=== PATIENT | male | born 1960 | race African-American/Black ===

== ENCOUNTER 2017-12-29 16:57 | Inpatient (IN) | payer BC ==
[~2017-12-29 16:57] MED LIST: ISOVUE-370 76%-LOCM 1 ML ONE
--- NOTE | 2017-12-29 18:52 | PDOC.FPRHP ---
- History of Present Illness Chief Complaint: Right hand weakness History of Present Illness: This is a 57 yo male with a PMH of HTN, HLD who presents to the ED with a cc of right hand weakness. He reports that 3 days ago he started having some foot drop on his right side with reduced ability to walk. Today he reports that he had weakness and numbness in his right arm. He states that his numbness and weakness has improved throughout the day. He reports he is still having some weakness in his right lower leg. Pt. denies SOB, CP, changes in vision, dysphagia, or abdominal pain. He denies never having anything like this before. - Allergies/Adverse Reactions Allergies Allergy/AdvReac Type Severity Reaction Status Date / Time No Known Drug Allergies Allergy Unverified 12/29/17 20:33 - Home Medications Medication Instructions Recorded Confirmed Type Aspirin 325 mg PO DAILY 12/29/17 12/29/17 History Atorvastatin Calcium [Lipitor] 10 mg PO DAILY 12/29/17 12/29/17 History Lisinopril 20 mg PO DAILY 12/29/17 12/29/17 History - History PMHx:HTN, HLD PSHx: None FHx: Mother at 50 2/2 heart attack, father has DMII Social: Daily alcohol use, smokeless tobacco, denies drug use - Review of Systems General: denies: fever/chills, weight/appetite/sleep changes Eyes: denies: eye pain, vision changes ENT: denies: nasal congestion, rhinorrhea Respiratory: denies: cough, congestion, shortness of breath Cardiovascular: denies: chest pain, palpitation, edema Gastrointestinal: denies: nausea, vomiting, diarrhea, constipation, abdominal pain Genitourinary: denies: incontinence, dysuria Skin: denies: rashes, lesions Musculoskeletal: denies: pain, tenderness Neurological: reports: numbness, weakness Psychological: denies: anxiety, depression - Vital signs BP: 194/114 HR: 60 RR: 22 Tmax: 98.9 Pox: 100% on RA Wt: 66.7 - Physical Exam Constitutional: NAD, awake, alert and oriented, well developed HEENT: PERRLA, EOMI, MMM Neck: supple, FROM, trachea midline Chest: no-tender to palpation, no lesions Heart: RRR, normal S1/S2, no murmurs/rubs/gallops, pulses present, no edema Lungs: CTAB, no respiratory distress, good air movement Abdomen: soft, non-tender, bowel sounds present, no masses/distention Musculoskeletal: normal structure, normal tone, other (Right UE had slight decrease in strength, right LE had) Neurological: CN II-XII intact, normal sensation -Neurological: Slight decrease in strength in right UE however still remains quite strong. No noticeable decreased in strength on the lower leg. Skin: good turgor, capillary refill <2 seconds Heme/Lymphatic: no unusual bruising or bleeding, no purpura Psychiatric: normal mood and affect, good judgment and insight FMR H&P: Results - Labs Lab results: WBC 4.6, Hgb 13.0, Hct 41.6, Ptl 269, Na 140, K 3.6, Cl 108, Bicarb 23, BUN 16, Cr 0.87, Glucos 140, Trop neg x1, - Radiology Interpretation CT scan - head Status: report reviewed by me (Lacunar infaction right thalamus of indeterminate age, no acute cortical infaction is seen, no evidence of hemorrhage) Chest x-ray Status: report reviewed by me (No acute cardiopulmonary process) FMR H&P: A/P - Problem List (1) TIA (transient ischemic attack) Current Visit: Yes Status: Acute Code(s): G45.9 - TRANSIENT CEREBRAL ISCHEMIC ATTACK, UNSPECIFIED (2) HTN (hypertension) Current Visit: Yes Status: Acute Code(s): I10 - ESSENTIAL (PRIMARY) HYPERTENSION (3) HLD (hyperlipidemia) Current Visit: Yes Status: Acute Code(s): E78.5 - HYPERLIPIDEMIA, UNSPECIFIED - Plan This is a 57 yo male with a PMH of HTN, HLD TIA vs CVA r/o -Admit to stroke. CT head shows lacunar infarct of unknown age. We are ordering CTA head and neck, echo, and an MRI. Pt. has received aspirin 325 and will be started on atorvastatin 40 qHS. PT/OT has been consulted. We will consult Stroke team pending MRI results HTN -Continue home medication HLD -atorvastatin 40mg Alcoholism -ASE protocol Code: Full Prophylaxis: SCDs Family: Friends at bedside Disposition: Home in 2-3 days FMR H&P: Upper Level - Pertinent history 57 yo AAM PMH HTN, EtOH abuse, and tobacco abuse. Presents as transfer from [facility] with a CC of right foot drop that started 3 days ago. States this has not resolved. Patient also reports right arm weakness and numbness that started at approximately 0900 today. State it has since resolved. Reports daily alcohol and tobacco use. Has approximately 35 pack year smoking hx. States he drinks at least 2-3 beers daily and up to a 12 pack on the the weekend. Review of records shows carotid doppler in 2011 with 40-50% stenosis of left internal carotid. ER: Labs, EKG, CT brain, ASA. - Pertinent findings Vitals: BP elevated 190/100, otherwise WNL GEN: NAD EENT: MMM, PERRL, EOMI CV: RRR, no murmur Pulm: CTA-B normal effort Neuro: CN 2-12 intact, normal sensation 4/5 strength in right hand, otherwise 5/ 5 in all major muscle groups, negative [id number] and heel to mireles. A&Ox4, GCS 15 EKG: NSR with voltage criteria for LVH Labs: unremarkable Imaging: CXR negative, CT brain- right thalamic infarct of unknown age. - Plan Date/Time: 12/29/171850 I, Lyle Lee MD, have evaluated this patient and agree with findings/plan as outlined by property management intern resident. Pertinent changes/additions are listed here. 1. Suspected Acute Right Lacunar Infarct of the thalamus: Will order CTA head and neck to evaluate vasculature. MRI brain tomorrow. PT/OT, continue ASA with consideration of switching to other antiplatelet therapy based on MRI results, High intensity statin, permissive HTN, Will consult remainder of stroke team pending results of MRI, TTE ordered, encourage smoking cessation and alcohol cessation, q4hr neurochecks, FLP to further risk stratify 2. HTN: home meds, permissive HTN to 220/110 for 24 hours 3. Tobacco abuse: encouraged cessation, PRN nicotine patch, 4. Alcohol abuse: FRANCISCO protocol 5. Diet: HH, low sodium 6. PPx: fall, SCD, 7. CODE: FULL DISPO: Inpatient, stroke, >[address] Collins. Attending Addendum - Attending Addendum Date/Time: 12/29/17 7549 I personally evaluated the patient and discussed the management with Dr. Velásquez /Jesus. I agree with the History, Examination, Assessment and Plan documented above with any addition or exceptions noted below. Patient here after 3-4 days of R foot drop that has impacted his mobility that began suddenly, waxes and wanes, and new onset R hand numbness and weakness that occurred this morning. He reports the hand symptoms resolved through the day but R foot drop continues to be persistent. He denies CABALLERO, visual changes, difficulty swallowing, abdominal pain, NVD, cough, shortness of breath, chest pain, weakness or sensory change elsewhere. He has never had symptoms like this before. On statin, ASA, and BP control at home. His exam reveals very minor assymetry in R hand strength and R foot dorsiflexion. Other neurological testing wnl at this time. CT scan shows age indeterminate lacunar infarct, and CTA shows carotid stenosis, but no acute embolic or thrombotic phenomena. Patient will be admitted for presumed subacute infarct resulting in neurological deficit impacting mobility. Will consult Neurology and Stroke team in AM as his deficits are outside window for more aggressive therapeutics. Permissive HTN overnight and then work to control beginning tomorrow. Obtain MRI and TTE. High intensity statin. Likely transition patient to ASA and Plavix once MRI obtained and we can verify no hemorrhagic conversion. Risk stratify and modify risk factors as able. Consult therapy services.
[2017-12-29] MEDS ORDERED: Labetalol HCl 100 MG/20 ML VIAL SLOW IVP PRN (20:29)
[2017-12-29] MEDS ORDERED: Acetaminophen 325 MG TAB PO PRN (20:29)
[2017-12-29] MEDS ORDERED: Ondansetron ODT 4 MG TAB PO PRN (20:29)
--- NOTE | 2017-12-29 20:54 | CT ---
CT BRAIN WITHOUT CONTRAST: CTA BRAIN WITH IV CONTRAST AND 3D POST PROCESSING: CTA NECK WITH IV CONTRAST AND 3D POST PROCESSING: HISTORY: A 57-year-old male with possible stroke. Difficulty walking with right leg dragging for the past thr ee days and numbness in the right arm at around 9 a.m. today. The patient reports numbness has resol leah. FINDINGS: No evidence of transcortical infarct, hemorrhage, midline shift, or abnormal extraaxial fluid collect ions is seen. The ventricular size is normal, and the basilar cisterns are patent. A tiny, age inde terminate infarct is again noted in the right thalamus. There is atherosclerotic plaque at the origins of the right common carotid artery and the left subcla vian artery. There is good flow without stenosis in the common carotid arteries on either side. The extracranial portions of the internal carotid arteries demonstrate good flow and no evidence of sign ificant plaque or narrowing. Calcified plaque is seen in the cavernous and clinoid portions of the i nternal carotid arteries on both sides, with severe stenosis on the left. Symmetric blood flow is no ubaldo to the cerebral hemispheres bilaterally without evidence of major branch occlusion or aneurysm fo rmation. There is good flow in the internal carotid arteries on either side with left side dominanc e. There is nonocclusive calcified plaque in the right vertebral artery, at the level of the inferio r clivus. The upper lung rojo demonstrate changes of emphysema. There are degenerative changes in the spine. IMPRESSION: 1. No evidence of acute transcortical infarct or intracranial hemorrhage. 2. Age indeterminate lacunar infarction in the right thalamus. 3. Calcified atherosclerotic plaque in the cavernous and clinoid portions of the internal carotid ar teries on both sides, worse on the left, with associated left severe stenosis, as discussed above. POS: NICHOLAS
[2017-12-29] MEDS: Atorvastatin Calcium 40 MG TAB PO SCH (22:46)
[2017-12-30 04:52] VITALS: BMI 19.1
[2017-12-30 05:00] LABS: #Basophils 0.1 thou/uL (0.0-0.2); #Eosinphils 0.3 thou/uL (0.0-0.7); #Lymphocytes 1.7 thou/uL (1.20-3.40); #Monocytes 0.5 thou/uL (0.11-0.59); #Neutrophils 2.7 thou/uL (1.40-6.50); %Eosinophils 5.5 % (0.0-10.0); %Lymphocytes 33.6 % (21.0-51.0); %Monocytes 8.8 % (0.0-10.0); %Neutrophils 51.1 % (42.0-75.0); Hemoglobin 13.2 g/dL (14.0-18.0); Mean Corpuscular HGB CONC 32.1 g/dL (32.0-36.0); Mean Corpuscular Hemoglobin 29.1 pg (27.0-31.0); Mean Corpuscular Volume 90.9 fL (78.0-98.0); Mean Platelet Volume 8.3 fL (7.4-10.4); Platelet Count 256 thou/uL (130-400); RBC Distribution Width 12.2 % (11.5-14.5); Red Blood Cell (RBC) Count 4.54 mill/uL (4.70-6.10); White Blood Cell (WBC) Count 5.2 thou/uL (4.8-10.8)
[2017-12-30 05:21] LABS: ALT (SGPT) 16 U/L (8-55); AST (SGOT) 20 U/L (5-34); Albumin 3.6 g/dL (3.5-5.0); Alkaline Phosphatase 68 U/L (40-150); Anion Gap 11 mmol/L (10-20); BUN (Urea Nitrogen) 13 mg/dL (8.4-25.7); Calc. Creatinine Clearance 95 mL/min (70-130); Calcium 9.1 mg/dL (7.8-10.44); Carbon Dioxide 23 mmol/L (22-29); Cardiac Risk 2.3 (Less than 4.5); Chloride 106 mmol/L (98-107); Cholesterol 192 mg/dl (< 200 Desired); Estimated GFR-MDRD Greater than 90; Globulin 2.4 g/dL (2.4-3.5); Glucose 92 mg/dL (70-105); HDL Cholesterol 82 mg/dL (>60 Neg Risk); LDL Cholesterol, Calculated 97 mg/dL; Potassium 3.4 mmol/L (3.5-5.1); Sodium 137 mmol/L (136-145); Triglycerides 66 mg/dL (Less than 150)
[2017-12-30] MEDS ORDERED: Potassium Chloride 20 MEQ TAB PO SCH (06:30)
--- NOTE | 2017-12-30 07:50 | PDOC.EVN ---
Attending Addendum - Attending Addendum Date/Time: 12/30/17 2228 I personally evaluated the patient and discussed the management with Dr. Humphries. I agree with the History, Examination, Assessment and Plan documented in his progress note with any addition or exceptions noted below. Patient doing well this morning and has no recurrence in symptoms. His ABCD2 score is 5, placing him at high risk for recurrent TIA/Stroke in the near future. CTA showed carotid stenosis in the internal carotid arteries b/l that is likely not accessible to surgeons, but if his MRI confirms infarct, will consult them to be sure. Once we know the level of ischemia, we can transition the patient to ASA and Plavix for improved outcomes since he is low risk currently for bleeding disorder. Consult Neuro and stroke team once we have results of MRI. Therapy services to make recommendations but I anticipate that patient will be stable for discharge home with minor assistance once his workup is complete.
--- NOTE | 2017-12-30 08:08 | PDOC.FM ---
- Subjective Subjective: 57 yo M hospital day 2 admitted for TIA vs CVA. No acute events overnight. Pt rpeorts improvement of rt sided weakness, but not complete resolution. CT showed possible lacunar infarct, MRI pending. Denies CP, SOB, headache, vision changes. Some residual weakness, improved from yesterday. - Objective Vital Signs & Weight: Vital Signs (12 hours) Temp Pulse Resp BP Pulse Ox 12/30/17 04:29 99.5 F 61 16 135/80 96 12/29/17 23:11 97.9 F 53 L 16 148/83 H 96 12/29/17 21:21 97 Weight Weight 64.127 kg Result Diagrams: 12/30/17 04:24 12/30/17 04:24 Phys Exam - Physical Examination Constitutional: NAD HEENT: PERRLA, sclera anicteric Neck: no nodes, no JVD Respiratory: no wheezing, no rales, no rhonchi, clear to auscultation bilateral Cardiovascular: RRR, no significant murmur, no rub Musculoskeletal: no edema, pulses present Neurological: normal sensation, moves all 4 limbs 4+/5 strength of the RUE, speech fluent without dysarthria Psychiatric: normal affect, A&O x 3 Skin: no rash Dx/Plan (1) TIA (transient ischemic attack) Code(s): G45.9 - TRANSIENT CEREBRAL ISCHEMIC ATTACK, UNSPECIFIED Status: Acute (2) HLD (hyperlipidemia) Code(s): E78.5 - HYPERLIPIDEMIA, UNSPECIFIED Status: Acute (3) HTN (hypertension) Code(s): I10 - ESSENTIAL (PRIMARY) HYPERTENSION Status: Acute - Plan Plan: 1) TIA vs CVA - cta showed significant stenosis of left ICA which is possibly contributing to pts symptoms and new suspected lacunar infarct, no evidence of hemorrhage - MRI is pending - strength improved from yesterday, but still mild focal weakness - pt on asa prior to stroke, escalate therapy to aggrenox - consider stroke team consult if pos MRI - possible CV surg consult, but likely stable for OP workup, monitor 2) HTN: - allow for permissive htn, protect penumbra - tight control after 24 hrs 3) HLD: - stable cont statin Dispo: Stable, await MRI results and adjust therapy accordingly.
[2017-12-30] MEDS: Aggrenox 200-25mg CAP PO SCH ×2 (08:45→20:50)
[2017-12-30] MEDS ORDERED: Aspirin 325 mg Enteric Coated Tablet PO SCH (09:00)
--- NOTE | 2017-12-30 16:22 | MRI ---
MRI BRAIN WITHOUT IV CONTRAST: 12/30/2017 HISTORY: Dragging right leg. TIA/CVA. FINDINGS: There is a focus of increased FLAIR and T2 weight signal intensity seen within the superior aspect of the left basal ganglia, which extends into the periventricular white matter. This area does demonst rate restricted diffusion and likely represents an acute lacunar infarction. No additional acute inf arction is seen. There are scattered punctate areas of increased FLAIR and T2 weighted signal intens ity in the periventricular white matter, which are nonspecific but likely attributable to chronic sma ll vessel ischemic changes. Local small area of increased T2 weighted signal intensity in the right thalamus is present, seen on prior CT scan examination on 12/29/2017. It does not demonstrate restri cted effusion and is most consistent with a small, remote, cavitated lacunar infarction. The septum pellucidum and third ventricle are in the midline. The ventricular system is normal in si ze, shape, and position. There is mild cerebral volume loss. Appropriate flow voids are demonstrate d at the base of the brain. Minimal mucosal thickening is present in the left maxillary antrum. The remainder of the paranasal s inuses, orbits, and skull base have a normal MRI appearance. IMPRESSION: 1. Small acute lacunar infarction in the left basal ganglia and extending into the left periventricu lar white matter. 2. Remote, cavitated lacunar infarction in the right thalamus. 3. Mild chronic small vessel ischemic changes. POS: NICHOLAS
[2017-12-30] MEDS: Atorvastatin Calcium 40 MG TAB PO SCH (20:50)
--- NOTE | 2017-12-31 06:47 | PDOC.FM ---
- Subjective Subjective: 57 yo M hospital day 3 admitted for TIA vs CVA. No acute events overnight. Patient thinks his strength is improving. States sensation has returned on R arm. He was able to ambulate to the end of the hallway and back last night. No SOB, N/V/D. - Objective Vital Signs & Weight: Vital Signs (12 hours) Temp Pulse Resp BP Pulse Ox 12/31/17 04:00 97.9 F 65 16 129/73 96 12/31/17 00:00 98.0 F 63 16 124/76 96 12/30/17 20:40 95 12/30/17 20:00 98.9 F 61 20 145/82 H 95 Weight Weight 64.127 kg I&O: 12/29/17 12/30/17 12/31/17 06:59 06:59 06:59 Intake Total 830 Balance 830 Result Diagrams: 12/30/17 04:24 12/30/17 04:24 <Anthony Baker - Last Filed: 12/31/17 06:47> - Objective Vital Signs & Weight: Vital Signs (12 hours) Temp Pulse Resp BP Pulse Ox 12/31/17 07:58 98.8 F 57 L 18 140/83 97 12/31/17 04:00 97.9 F 65 16 129/73 96 12/31/17 00:00 98.0 F 63 16 124/76 96 12/30/17 20:40 95 Weight Weight 64.127 kg I&O: 12/30/17 12/31/17 01/01/18 06:59 06:59 06:59 Intake Total 830 480 Balance 830 480 Result Diagrams: 12/30/17 04:24 12/30/17 04:24 <Peng Collins R - Last Filed: 12/31/17 08:06> Phys Exam - Physical Examination Constitutional: NAD HEENT: PERRLA, moist MMs Neck: no nodes, full ROM Respiratory: no wheezing, clear to auscultation bilateral Cardiovascular: RRR, no significant murmur Mild carotid bruit on R Gastrointestinal: soft, non-tender, no distention, positive bowel sounds Musculoskeletal: no edema Sensation intact all four extremities, dorsiflexion on R is weak Psychiatric: normal affect Skin: no rash, cap refill <2 seconds <Anthony Baker - Last Filed: 12/31/17 06:47> Dx/Plan (1) HLD (hyperlipidemia) Code(s): E78.5 - HYPERLIPIDEMIA, UNSPECIFIED Status: Acute (2) HTN (hypertension) Code(s): I10 - ESSENTIAL (PRIMARY) HYPERTENSION Status: Acute (3) TIA (transient ischemic attack) Code(s): G45.9 - TRANSIENT CEREBRAL ISCHEMIC ATTACK, UNSPECIFIED Status: Acute (4) Carotid stenosis Code(s): I65.29 - OCCLUSION AND STENOSIS OF UNSPECIFIED CAROTID ARTERY Status : Acute - Plan Plan: #CVA w/ L carotid stenosis - cta showed significant stenosis of left ICA which is possibly contributing to pts symptoms and new suspected lacunar infarct, no evidence of hemorrhage - MRI shows acute lacunar infarct L basal ganglion extending into white matter - strength improved from yesterday, but still mild focal weakness on RLE - pt on asa prior to stroke, escalate therapy to aggrenox - will discuss case with CV Surgery 2/2 carotid stenosis in setting of infarct - Neuro consulted, recs appreciated # HTN: - allow for permissive htn, protect penumbra - tight control after 24 hrs # HLD: - stable cont statin Dispo: pending CV surg input <Anthony Baker - Last Filed: 12/31/17 06:47> (1) TIA (transient ischemic attack) Code(s): G45.9 - TRANSIENT CEREBRAL ISCHEMIC ATTACK, UNSPECIFIED Status: Acute (2) HTN (hypertension) Code(s): I10 - ESSENTIAL (PRIMARY) HYPERTENSION Status: Acute (3) HLD (hyperlipidemia) Code(s): E78.5 - HYPERLIPIDEMIA, UNSPECIFIED Status: Acute <Peng Collins - Last Filed: 12/31/17 08:06> Attending Addendum - Attending Addendum Date/Time: 12/31/17 0803 I personally evaluated the patient and discussed the management with Dr. Baker. I agree with the History, Examination, Assessment and Plan documented above with any addition or exceptions noted below. Patient doing well and has no recurrence of stroke like symptoms. MRI did confirm acute infarct. He is now on BP control, high intensity statin, and Aggrenox. It appears that it may be cheaper for him to begin ASA and Plavix as opposed to Aggrenox. Will clarify with CM and discharge patient on whatever he is able to afford. Neuro and stroke team consulted. He is good candidate for home health with PT and does not require any highly intensive therapy services. Consult CV surgery due to his significant carotid stenosis in setting of acute infarct, though the level of stenosis is high enough that I am unsure if they will be able to offer anything to fix this. Once these recommendations are in, patient should likely be stable for discharge home. <Peng Collins - Last Filed: 12/31/17 08:06>
[2017-12-31] MEDS: Aggrenox 200-25mg CAP PO SCH (09:47)
[2017-12-31] MEDS: Atorvastatin Calcium 40 MG TAB PO SCH (21:13)
--- NOTE | 2017-12-31 23:16 | CON ---
DATE OF ADMISSION: 12/29/2017 DATE OF CONSULTATION: 12/31/2017 REASON FOR CONSULTATION: Evaluate the patient with a stroke and internal carotid stenosis. The patient presented with lateralizing symptoms of the right hand. He also had some foot drop on th e right. He has had an MRI of his brain which shows lacunar infarcts in the left basal ganglia and p eriventricular white matter. He has had a CT angiogram of his neck which shows no significant caroti d stenosis extracranially. He does have intracranial carotid stenosis. Symptomatology has improved. He was on aspirin when he presented with his symptoms and thus I have added Aggrenox to his current home medical regimen. I reviewed his CT angiogram and the area of stenosis is intracranial and is not accessible surgically . I agree with the addition of additional antiplatelet agent and this should be the total of his the rapy.
--- NOTE | 2018-01-01 06:45 | PDOC.FM ---
- Subjective Subjective: This morning patient states he is feeling well. Was able to ambulate up and down the hallway multiple times yesterday. He states he is pleased with the gains in strength that he has made over the last few days. States he has a ride home. Will plan for home OT/PT 2/2 foot drop on R side. - Objective Vital Signs & Weight: Vital Signs (12 hours) Temp Pulse Resp BP BP Pulse Ox 01/01/18 04:00 98.4 F 62 18 133/78 133/78 95 01/01/18 00:13 137/77 12/31/17 23:57 97.8 F 63 19 137/77 98 12/31/17 20:00 97.5 F L 62 18 148/78 H 148/78 H 98 Weight Weight 64.127 kg I&O: 12/30/17 12/31/17 01/01/18 06:59 06:59 06:59 Intake Total 830 1165 Balance 830 1165 Result Diagrams: 12/30/17 04:24 12/30/17 04:24 <Anthony Baker - Last Filed: 01/01/18 06:44> - Objective Vital Signs & Weight: Vital Signs (12 hours) Temp Pulse Resp BP BP Pulse Ox 01/01/18 04:00 98.4 F 62 18 133/78 133/78 95 01/01/18 00:13 137/77 12/31/17 23:57 97.8 F 63 19 137/77 98 12/31/17 20:00 97.5 F L 62 18 148/78 H 148/78 H 98 Weight Weight 64.127 kg I&O: 12/30/17 12/31/17 01/01/18 06:59 06:59 06:59 Intake Total 830 1165 Balance 830 1165 Result Diagrams: 12/30/17 04:24 12/30/17 04:24 <Peng Collins - Last Filed: 01/01/18 06:58> Phys Exam - Physical Examination Constitutional: NAD HEENT: PERRLA, moist MMs Respiratory: no wheezing, clear to auscultation bilateral Cardiovascular: RRR, no significant murmur Gastrointestinal: soft, non-tender, no distention, positive bowel sounds Musculoskeletal: no edema, pulses present weakness with dorsiflexion on R, 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, sensation intact Psychiatric: normal affect, A&O x 3 Skin: no rash, cap refill <2 seconds <Anthony Baker - Last Filed: 01/01/18 06:44> Dx/Plan (1) HLD (hyperlipidemia) Code(s): E78.5 - HYPERLIPIDEMIA, UNSPECIFIED Status: Acute (2) HTN (hypertension) Code(s): I10 - ESSENTIAL (PRIMARY) HYPERTENSION Status: Acute (3) TIA (transient ischemic attack) Code(s): G45.9 - TRANSIENT CEREBRAL ISCHEMIC ATTACK, UNSPECIFIED Status: Acute (4) Carotid stenosis Code(s): I65.29 - OCCLUSION AND STENOSIS OF UNSPECIFIED CAROTID ARTERY Status : Acute - Plan Plan: #CVA w/ L carotid stenosis - cta showed significant stenosis of left ICA which is possibly contributing to pts symptoms and new suspected lacunar infarct, no evidence of hemorrhage - MRI shows acute lacunar infarct L basal ganglion extending into white matter - strength improved from yesterday, but still mild focal weakness on RLE - pt on asa prior to stroke, escalate therapy to plavix + asa - Neuro consulted, recs appreciated - CV surg consulted, recs appreciated-> medical therapy # HTN: - well controlled # HLD: - stable cont statin Dispo: d/c today <Anthony Baker - Last Filed: 01/01/18 06:44> (1) TIA (transient ischemic attack) Code(s): G45.9 - TRANSIENT CEREBRAL ISCHEMIC ATTACK, UNSPECIFIED Status: Acute (2) HTN (hypertension) Code(s): I10 - ESSENTIAL (PRIMARY) HYPERTENSION Status: Acute (3) HLD (hyperlipidemia) Code(s): E78.5 - HYPERLIPIDEMIA, UNSPECIFIED Status: Acute <Peng Collins - Last Filed: 01/01/18 06:58> Attending Addendum - Attending Addendum Date/Time: 01/01/18 0656 I personally evaluated the patient and discussed the management with Dr. Baker. I agree with the History, Examination, Assessment and Plan documented above with any addition or exceptions noted below. Patient doing well. Stable for discharge home on asa and plavixx, as well as high intensity statin therspy and outpatient PT. Follow up with PCP. <Peng Collins R - Last Filed: 01/01/18 06:58>
[2018-01-01 07:41] VITALS: TEMP 97.5
[2018-01-01] MEDS ORDERED: Aspirin 325 mg Enteric Coated Tablet PO SCH (09:00)
[2018-01-01] MEDS ORDERED: Clopidogrel Bisulfate 75 MG TAB PO SCH (09:00)
[2018-01-01 10:12] VITALS: BP 138/83
--- NOTE | 2018-01-01 13:06 | DIS-2 ---
DATE OF ADMISSION: 12/29/2017 DATE OF DISCHARGE: 01/01/2018 RESIDENT: Dr. Anthony Baker ADMITTING ATTENDING: Peng Collins M.D. DISCHARGE ATTENDING: Peng Collins M.D. CONSULTATIONS: Neurology, Dr. Tomás Reilly; CV Surgery, Dr. Johnathon Medina. PROCEDURES: [place] with contrast showed no evidence of transcortical infarct or h emorrhage, age indeterminate lacunar infarct in right thalamus, internal carotid stenosis on both maría es, worse on left. Brain MRI showed small lacunar infarct, left basal ganglia, acute. PRIMARY DIAGNOSIS: Acute cerebrovascular accident. SECONDARY DIAGNOSES: 1. Hypertension. 2. Hyperlipidemia. DISCHARGE MEDICATIONS: Plavix 75 mg, atorvastatin, aspirin, lisinopril. HISTORY OF PRESENT ILLNESS AND HOSPITAL COURSE: This is a 57-year-old gentleman who presented to the ED with chief complaint of right hand weakness. He stated that it started 3 days prior to admission and was having some foot drop on the right side associated with numbness throughout the day. Denied shortness of breath, chest pain, changes in vision. He never had anything like this before. Brain MRI showed there to be an acute lacunar infarct. The patient made significant gains in strengt h of upper and lower extremities throughout the admission working with PT and OT. The patient will b e discharged home with home OT and PT secondary to continued foot drop in the right lower extremity. The patient is on full therapy, aspirin, and Plavix. CV Surgery evaluated the patient and stated th at the stenosis in the left carotid was not surgical in nature and could be treated with medical ther apy. DISPOSITION: Stable. DISCHARGE INSTRUCTIONS: 1. Location: Home. 2. Diet: Regular. 3. Activity: As tolerated. 4. Followup: Follow up with Dr. Corey Bloom. Instructed the patient to begin exercise regularly, and follow up with PCP for blood pressure control.
== END 2018-01-01 11:38 | disposition home health service (06) | DRG 66 ==
LOC: ERS 16:57 → 2SE 19:45
PROVIDERS: ADMIT Student in an Organized Health Care Education/Training Program; ATTEND Student in an Organized Health Care Education/Training Program
DX: I63.9 Cerebral infarction, unspecified (principal); I10 Essential (primary) hypertension; E78.5 Hyperlipidemia, unspecified; F17.220 Nicotine dependence, chewing tobacco, uncomplicated; F10.20 Alcohol dependence, uncomplicated; I65.22 Occlusion and stenosis of left carotid artery; G83.21 Monoplegia of upper limb affecting right dominant side; M21.371 Foot drop, right foot; Z79.82 Long term (current) use of aspirin; Z83.3 Family history of diabetes mellitus; Z82.49 Family history of ischemic heart disease and other diseases of the circulatory system
CPT/HCPCS: 36415; 70496; 70498; 70551; 80053; 80061; 85025; 93306; G8978-GP-CK; G8979-GP-CI; G8987-GO-CI; G8988-GO-CI; G8989-GO-CI; G8996-GN-CI; G8997-GN-CH

== ENCOUNTER 2018-10-07 12:36 | Outpatient (CLI) | payer BC | END 2018-10-07 12:37 | disposition home or self-care (01) | PROVIDERS: ATTEND Nurse Practitioner Adult Health | DX: R07.89 Other chest pain (principal) | CPT/HCPCS: 93017 ==

== ENCOUNTER 2018-10-13 10:09 | Observation (INO) | payer BC ==
[2018-10-13 11:01] LABS: #Eosinphils 0.1 thou/uL (0.0-0.7); #Lymphocytes 1.5 thou/uL (1.20-3.40); #Monocytes 0.6 thou/uL (0.11-0.59); #Neutrophils 2.4 thou/uL (1.40-6.50); %Eosinophils 2.6 % (0.0-10.0); %Monocytes 12.4 % (0.0-10.0); Hemoglobin 13.1 g/dL (14.0-18.0); Mean Corpuscular Hemoglobin 27.8 pg (27.0-31.0); Mean Platelet Volume 7.8 fL (7.4-10.4); Platelet Count 257 thou/uL (130-400); RBC Distribution Width 12.9 % (11.5-14.5); Red Blood Cell (RBC) Count 4.71 mill/uL (4.70-6.10); White Blood Cell (WBC) Count 4.6 thou/uL (4.8-10.8)
--- NOTE | 2018-10-13 11:03 | RAD ---
XR Chest Pa Lat STANDARD History: Chest pain Comparison: Radiograph 2018 Findings: Large left calcified hilar lymph node. Calcified granuloma left lower lobe. No pneumothorax . Lungs are mildly hyperinflated. No acute osseous abnormality. Impression: Chronic findings. No acute intrathoracic abnormality.
[2018-10-13 11:23] LABS: ALT (SGPT) 32 U/L (8-55); AST (SGOT) 24 U/L (5-34); Albumin 4.4 g/dL (3.5-5.0); Alkaline Phosphatase 90 U/L (40-150); Anion Gap 13 mmol/L (10-20); BUN (Urea Nitrogen) 23 mg/dL (8.4-25.7); Bilirubin, Total 1.1 mg/dL (0.2-1.2); CK (CPK) 148 U/L (30-200); Calc. Creatinine Clearance 0 mL/min (70-130); Calcium 9.6 mg/dL (7.8-10.44); Carbon Dioxide 23 mmol/L (22-29); Chloride 102 mmol/L (98-107); Estimated GFR-MDRD Greater than 90; Globulin 2.5 g/dL (2.4-3.5); Glucose 109 mg/dL (70-105); Potassium 4.4 mmol/L (3.5-5.1); Protein, Total 6.9 g/dL (6.0-8.3); Sodium 134 mmol/L (136-145)
[2018-10-13] MEDS ORDERED: Ondansetron ODT 4 MG TAB SL PRN (12:22)
[2018-10-13] MEDS ORDERED: Acetaminophen 325 MG TAB PO PRN ×2 (12:22→15:20)
[2018-10-13] MEDS ORDERED: Ondansetron PF 4 MG/2 ML Vial IVP PRN (12:22)
[2018-10-13] MEDS ORDERED: Nitroglycerin 2% Ointment 1 INCH/1 GM Packet ONE (12:27)
--- NOTE | 2018-10-13 14:55 | PDOC.FPRHP ---
- History of Present Illness Chief Complaint: chest pain History of Present Illness: This is a pleasant 58-y.o. male w/ PMHx of HLD, HTN, TIA in 2012, and lacunar stroke in 2018 who presents with 3 weeks of chest pain. He has never had a pain like this previously. Pain is primarily located over his left chest. He describes the pain as "pressure" like "the blood pressure cuff puts pressure" except in his chest. The pain comes and goes. He does not associate the pain with exertion or movement; it will occur with movement and at rest. Patient cannot recall anything that makes his pain better or worse. He does also report some left arm tingling but not pain. Before the chest pain comes on, he reports some pain over his left abdomen/left flank. Denies diaphoresis and nausea with the pain. Patient does have residual right leg weakness from his stroke in 2018. Patient worries his speech has been more slurred lately. He denies arm weakness in either arm and facial drooping. Patient had an exercise stress test on 10/07/2018 and is scheduled to see Dr. Jaquez on 10/19/2018. He does not know results of his stress test and the results are not posted on [facility]. ED Course: Presented to ED w/ chest pain. VSS. Chest pain was relieved w/ nitro paste on chest and aspirin. HEART score = 4. - Allergies/Adverse Reactions Allergies Allergy/AdvReac Type Severity Reaction Status Date / Time No Known Drug Allergies Allergy Verified 10/13/18 15:06 - Home Medications Medication Instructions Recorded Confirmed Type Aspirin 325 mg PO DAILY 12/29/17 10/13/18 History Lisinopril 20 mg PO DAILY 12/29/17 10/13/18 History Clopidogrel Bisulfate [Plavix] 75 mg PO DAILY 30 Days #30 tab 12/31/17 10/13/18 Rx Amlodipine [Norvasc] 5 mg PO DAILY 10/13/18 10/13/18 History Atorvastatin Calcium [Lipitor] 10 mg PO QPM 10/13/18 10/13/18 History Esomeprazole Magnesium [NexIUM] 40 mg PO DAILY 10/13/18 10/13/18 History Nicotine [Nicotine Patch] 1 patch TD DAILY 10/13/18 10/13/18 History Polyethylene Glycol 3350 [Miralax] 17 gm PO DAILY PRN 10/13/18 10/13/18 History - History PMHx: HTN, HLD, TIA- 2012, Stroke- 2018 PSHx: remote dental surgery to remove all teeth for infections FHx: Mother: , [place], HTN Father: , Diabetes Patient has no children. Social: Marital status: single Lives with his brother. 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 Smoked 1 -1.5 ppd for 42 years. Alcohol: drinks 6 beers per night Drug use: denies - Review of Systems General: denies: fever/chills, weight/appetite/sleep changes, fatigue Eyes: denies: eye pain, vision changes ENT: denies: nasal congestion, rhinorrhea Respiratory: denies: cough, shortness of breath, exercise intolerance Cardiovascular: reports: chest pain. denies: palpitation, edema Gastrointestinal: denies: nausea, vomiting, diarrhea Genitourinary: denies: incontinence, dysuria Skin: denies: rashes, lesions Musculoskeletal: reports: pain Neurological: denies: syncope - Vital signs BP: 130/78 HR: 59 RR: 20 Tmax: 97.9 Pox: 100% on RA Wt: 68 kg - Physical Exam Constitutional: NAD, awake, alert and oriented HEENT: normocephalic and atraumatic, EOMI, conjunctiva clear, no scleral icterus , grossly normal hearing, MMM (teeth removed) Neck: trachea midline Chest: no-tender to palpation Heart: RRR, normal S1/S2, no murmurs/rubs/gallops, pulses present (DP 2+, radial 2+), no edema Lungs: CTAB, no respiratory distress, no wheezing Abdomen: soft, non-tender, bowel sounds present, no masses/distention Musculoskeletal: normal structure, normal tone Neurological: no focal deficit (no tongue deviation, no facial droop, no pronator drift), CN II-XII intact Skin: no rash/lesions Heme/Lymphatic: no unusual bruising or bleeding Psychiatric: normal mood and affect, good judgment and insight, intact recent and remote memory FMR H&P: Results - Labs Result Diagrams: 10/14/18 06:04 10/14/18 06:04 Lab results: WBC 4.6 thou/uL (4.8-10.8) L 10/13/18 10:51 Hgb 13.1 g/dL (14.0-18.0) L 10/13/18 10:51 Hct 41.0 % (42.0-52.0) L 10/13/18 10:51 MCV 87.0 fL (78.0-98.0) 10/13/18 10:51 Plt Count 257 thou/uL (130-400) 10/13/18 10:51 Neutrophils % 51.0 % (42.0-75.0) 10/13/18 10:51 Sodium 134 mmol/L (136-145) L 10/13/18 10:51 Potassium 4.4 mmol/L (3.5-5.1) 10/13/18 10:51 Chloride 102 mmol/L (98-107) 10/13/18 10:51 Carbon Dioxide 23 mmol/L (22-29) 10/13/18 10:51 BUN 23 mg/dL (8.4-25.7) 10/13/18 10:51 Creatinine 0.88 mg/dL (0.7-1.3) 10/13/18 10:51 Glucose 109 mg/dL (70-105) H 10/13/18 10:51 Calcium 9.6 mg/dL (7.8-10.44) 10/13/18 10:51 Total Bilirubin 1.1 mg/dL (0.2-1.2) 10/13/18 10:51 AST 24 U/L (5-34) 10/13/18 10:51 ALT 32 U/L (8-55) 10/13/18 10:51 Alkaline Phosphatase 90 U/L (40-150) 10/13/18 10:51 Creatine Kinase 148 U/L (30-200) 10/13/18 10:51 Serum Total Protein 6.9 g/dL (6.0-8.3) 10/13/18 10:51 Albumin 4.4 g/dL (3.5-5.0) 10/13/18 10:51 Troponin: less than 0.01 - EKG Interpretation EKG: LVH, early repolarization, otherwise NSR - Radiology Interpretation Chest x-ray Status: report reviewed by me Additional comment: No acute cardiopulmonary process FMR H&P: A/P - Problem List (1) Atypical chest pain Current Visit: Yes Status: Acute Code(s): R07.89 - OTHER CHEST PAIN (2) HLD (hyperlipidemia) Current Visit: No Status: Acute Code(s): E78.5 - HYPERLIPIDEMIA, UNSPECIFIED (3) HTN (hypertension) Current Visit: No Status: Acute Code(s): I10 - ESSENTIAL (PRIMARY) HYPERTENSION (4) History of TIA (transient ischemic attack) and stroke Current Visit: Yes Status: Acute Code(s): Z86.73 - PRSNL HX OF TIA (TIA), AND CEREB INFRC W/O RESID DEFICITS (5) GERD (gastroesophageal reflux disease) Current Visit: Yes Status: Acute Code(s): K21.9 - GASTRO-ESOPHAGEAL REFLUX DISEASE WITHOUT ESOPHAGITIS - Plan 58-y.o. male, former smoker held to telemetry for: 1. Atypical chest pain - Patient's pain is atypical in nature. Will need to rule out ACS and observe inpatient as patient's HEART score is 4. - EKG today showed LVH and early repolarization. ECHO in 2017 showed EF of 50-55%, a normal left ventricle, and sclerotic aortic valve. - Troponin negative. Will trend x2. - Consulted Dr. Cantor for Cardiology. Patient had recent stress test with his group. - CBC, BMP in AM. 2. HTN - Continue antihypertensives: lisinopril 20mg in morning, amlodipine 5 mg PO at night - Monitor BP q4h. 3. HLD - Continue atorvastatin 10 mg daily PO 4. History of stroke and TIA - Continue ASA 325mg daily, Plavix 75 mg PO daily - Patient has residual right leg weakness from him stroke in December 2017. 5. GERD - Continue nexium 40mg daily 6. Constipation - Continue miralax 17g daily PO Lou Conley MD PGY-1 Disposition/LOS: Observation. Telemetry. Await cardiology recs. FMR H&P: Upper Level - Plan Date/Time: 10/13/18 1440 IArturo MD, have evaluated this patient and agree with findings/plan as outlined by consulting intern resident. Pertinent changes/additions are listed here. Nnamdi Gomez is a 58 year old M with a PMH of HTN, HLD, and hx of TIA ( 2011) who presented to the ED with a 3 week hx of left sided chest pain with associated left arm tingling. Pt unsure if chest pain is related to exertion or po intake. Occurs at rest and with activity. Describes pain as pressure/ squeezing. Has a long smoking hx but quit smoking 4 years ago. CP improved with nitro in the ED. No cardiac hx per patient. Stress test was done on but results are not accessible. EKG showed LVH and early repolarization but otherwise NSR. CXR was negative. Initial trop negative. Will continue to trend cardiac enzymes, continue antihypertensives and aspirin and nitro. Will consult Cardiology to get reading from stress test and to determine if further work up is warranted. Place on tele/obs with cardiac monitoring overnight. If CP resumes, will repeat EKG and Kassie. VTE ppx with lovenox. HH diet. Code status is full code. Anticipate hospital stay <2 midnights. Addendum - Attending - Attending Attestation Date/Time: 10/14/18 6929 I personally evaluated the patient and discussed the management with Dr. Conley at time of admission. I agree with the History, Examination, Assessment and Plan documented above with any addition or exceptions noted below.
[2018-10-13] MEDS ORDERED: Nitroglycerin 0.4 MG TAB (25 Tab Bottle) PO PRN (15:20)
[2018-10-13] MEDS ORDERED: Ondansetron ODT 4 MG TAB PO PRN (15:20)
[2018-10-13 15:31] VITALS: BMI 21.8
[2018-10-13] MEDS ORDERED: Polyethylene Glycol 3350 17 GM Packet PO PRN (15:33)
[2018-10-13] MEDS ORDERED: Communication Order-Pharmacy FS SCH (15:45)
[2018-10-13 15:53] LABS: Troponin I Less than 0.010 ng/mL (< 0.028)
[2018-10-13] MEDS: Amlodipine 5 MG TAB PO SCH (17:42)
[2018-10-13 17:55] LABS: Troponin I Less than 0.010 ng/mL (< 0.028)
[2018-10-13] MEDS ORDERED: Atorvastatin Calcium 10 MG TAB PO SCH (21:00)
--- NOTE | 2018-10-13 21:25 | CON ---
DATE OF CONSULTATION: HISTORY OF PRESENT ILLNESS: The patient is a 58-year-old gentleman, who presents for evaluation of chest discomfort. The patient has a previous history of hypertension and a TIA. The patient states recently he has developed left- sided chest discomfort. This chest discomfort only lasts a few seconds. The patient underwent a stress test a few days ago which was apparently abnormal. He was referred for further evaluation. The patient presents to the emergency room with recurrent chest pain. The discomfort is left-sided. It occurred this morning. The patient denies having any present chest discomfort. PAST MEDICAL HISTORY: 1. Hypertension. 2. TIA. 3. Dyslipidemia. PAST SURGICAL HISTORY: Dental surgery. SOCIAL HISTORY: Former smoker. MEDICATIONS: 1. Norvasc 5 daily. 2. Plavix 75 daily. 3. Aspirin 325 daily. 4. Lipitor 10 daily. 5. Nexium 40 daily. ALLERGIES: NO KNOWN DRUG ALLERGIES. REVIEW OF SYSTEMS: Ten-point system otherwise unremarkable. PHYSICAL EXAMINATION: GENERAL: Well-developed gentleman, in no acute distress. VITAL SIGNS: Blood pressure of 134/77. NECK: No jugular venous distention. No carotid bruits. LUNGS: Clear to auscultation. HEART: Regular rate and rhythm. Normal S1, S2. ABDOMEN: Nondistended. EXTREMITIES: Showed no edema. VASCULAR: Radial pulses are 2+. LABORATORY DATA: Sodium 134, potassium 4.4, chloride 102, bicarbonate 23, BUN 23, creatinine 0.88, glucose was 109. Troponin less than 0.01. White blood cell count 4.6, hemoglobin 13.1, hematocrit 41.0, platelets are 257. His EKG reveals normal sinus rhythm with left ventricular hypertrophy. IMPRESSION: 1. Chest pain, atypical. 2. Hypertension. 3. Dyslipidemia. 4. History of transient ischemic attack. 5. History of tobacco abuse. This gentleman presents with chest pain with primarily atypical features. He underwent a stress test recently, which was apparently unremarkable. The patient does have multiple risk factors for coronary artery disease. We will discuss the options with the patient whether he would like to continue on medical therapy or undergo an invasive evaluation. We will follow this patient with you through his hospitalization. Job ID: [id number] MTDD
[2018-10-14 06:12] LABS: #Eosinphils 0.1 thou/uL (0.0-0.7); #Lymphocytes 1.6 thou/uL (1.20-3.40); #Monocytes 0.6 thou/uL (0.11-0.59); %Basophils 0.8 % (0.0-1.0); %Eosinophils 2.7 % (0.0-10.0); %Lymphocytes 29.9 % (21.0-51.0); %Monocytes 11.7 % (0.0-10.0); %Neutrophils 54.9 % (42.0-75.0); Hemoglobin 12.6 g/dL (14.0-18.0); Mean Corpuscular HGB CONC 31.7 g/dL (32.0-36.0); Mean Corpuscular Hemoglobin 27.7 pg (27.0-31.0); Mean Corpuscular Volume 87.4 fL (78.0-98.0); Platelet Count 244 thou/uL (130-400); RBC Distribution Width 12.8 % (11.5-14.5); Red Blood Cell (RBC) Count 4.56 mill/uL (4.70-6.10); White Blood Cell (WBC) Count 5.4 thou/uL (4.8-10.8)
[2018-10-14] MEDS: Lisinopril 20 MG TAB PO SCH (06:20)
[2018-10-14] MEDS: Aspirin 325 mg Enteric Coated Tablet PO SCH (06:20)
[2018-10-14] MEDS: Clopidogrel Bisulfate 75 MG TAB PO SCH (06:20)
[2018-10-14] MEDS: Amlodipine 5 MG TAB PO SCH (06:21)
--- NOTE | 2018-10-14 06:26 | PDOC.FM ---
- Subjective Subjective: VSS. No acute events overnight. Patient is feeling well this morning. No complaints. He will go to cardiac lab technician this morning. No questions or concerns about the procedure. - Objective MAR Reviewed: Yes Vital Signs & Weight: Vital Signs (12 hours) Temp Pulse Resp BP BP Pulse Ox 10/14/18 06:21 68 10/14/18 06:20 134/79 10/14/18 04:50 98.6 F 68 20 98/66 96 10/13/18 19:22 98.6 F 72 16 122/72 97 Weight Weight 72.756 kg I&O: 10/12/18 10/13/18 10/14/18 06:59 06:59 06:59 Intake Total 350 Balance 350 Result Diagrams: 10/14/18 06:04 10/14/18 06:04 Additional Labs: Troponin: negative (<0.01) x3. EKG Reviewed by me: Yes Phys Exam - Physical Examination Constitutional: NAD HEENT: moist MMs Respiratory: no wheezing, no rales, clear to auscultation bilateral Cardiovascular: RRR, no significant murmur Musculoskeletal: no edema Psychiatric: normal affect, A&O x 3 Dx/Plan (1) Atypical chest pain Code(s): R07.89 - OTHER CHEST PAIN Status: Acute (2) HLD (hyperlipidemia) Code(s): E78.5 - HYPERLIPIDEMIA, UNSPECIFIED Status: Acute (3) HTN (hypertension) Code(s): I10 - ESSENTIAL (PRIMARY) HYPERTENSION Status: Acute (4) History of TIA (transient ischemic attack) and stroke Code(s): Z86.73 - PRSNL HX OF TIA (TIA), AND CEREB INFRC W/O RESID DEFICITS Status: Acute (5) GERD (gastroesophageal reflux disease) Code(s): K21.9 - GASTRO-ESOPHAGEAL REFLUX DISEASE WITHOUT ESOPHAGITIS Status: Acute (6) History of tobacco abuse Code(s): Z87.891 - PERSONAL HISTORY OF NICOTINE DEPENDENCE Status: Chronic - Plan Plan: 58-y.o. male, former smoker held to telemetry for: 1. Atypical chest pain - HEART score 4. - EKG: LVH, NSR. - ECHO in 2017: EF of 50-55%, a normal left ventricle, and sclerotic aortic valve. - Troponin negative x3. - Consulted Dr. Cantor for Cardiology. - To cardiac lab technician today - 10/07 Stress Test Exercise: 2.0-2.5 horizontal and down-sloping ST depression. - CBC, BMP in AM. Monitor Hgb as patient slightly anemic. 2. HTN - Continue antihypertensives: lisinopril 20mg in morning, amlodipine 5 mg PO at night - Monitor BP q4h. 3. HLD - Continue atorvastatin 10 mg daily PO 4. History of stroke and TIA - Continue ASA 325mg daily, Plavix 75 mg PO daily - Patient has residual right leg weakness from him stroke in December 2017. 5. GERD - Continue nexium 40mg daily 6. Constipation - Continue miralax 17g daily PO Lou Conley MD PGY-1 Addendum - Attending - Attending Attestation Date/Time: 10/14/18 8349 I personally evaluated the patient and discussed the management with Dr. Conley. I agree with the History, Examination, Assessment and Plan documented above with any addition or exceptions noted below. Patient s/p PCI with 2 ROX (per pt report). Chest pain free. No sob/n/v/f/c. Groin without bruising. Will continue to monitor and dispo pending cardiology.
[2018-10-14 06:34] LABS: ALT (SGPT) 26 U/L (8-55); AST (SGOT) 21 U/L (5-34); Albumin 3.9 g/dL (3.5-5.0); Alkaline Phosphatase 82 U/L (40-150); Anion Gap 10 mmol/L (10-20); BUN (Urea Nitrogen) 18 mg/dL (8.4-25.7); Calc. Creatinine Clearance 101 mL/min (70-130); Calcium 9.5 mg/dL (7.8-10.44); Carbon Dioxide 24 mmol/L (22-29); Chloride 103 mmol/L (98-107); Estimated GFR-MDRD Greater than 90; Globulin 2.7 g/dL (2.4-3.5); Glucose 113 mg/dL (70-105); Protein, Total 6.6 g/dL (6.0-8.3); Sodium 133 mmol/L (136-145)
[2018-10-14] MEDS ORDERED: Lidocaine 1% (PF) 30 ML VIAL ONE (07:55)
[2018-10-14] MEDS ORDERED: Midazolam HCl 2 mg/2 ml Vial ONE (08:40)
[2018-10-14] MEDS ORDERED: Enoxaparin Sodium 40 MG/0.4 ML SYRINGE SC SCH (09:00)
[2018-10-14] MEDS ORDERED: Heparin 10,000 UNITS/1 ML VIAL ONE (09:15)
[2018-10-14] MEDS ORDERED: Nitroglycerin 100MG/250ML BOT 250 ML ONE (09:15)
[2018-10-14] MEDS ORDERED: Clopidogrel Bisulfate 300 MG TAB ONE (09:23)
[2018-10-14] MEDS ORDERED: Sodium Chloride 0.9% 1,000 ML IV SCH (09:45)
[2018-10-14] MEDS ORDERED: Morphine 2 MG/ML SYRINGE SLOW IVP PRN (10:07)
[2018-10-14] MEDS: Nicotine 21 MG PATCH TD SCH (11:58)
[2018-10-14] MEDS ORDERED: Iopamidol 370 76% 100 ML VIAL ONE (15:26)
[2018-10-14] MEDS ORDERED: Iopamidol 370 76% 50 ML VIAL FS ONE (15:26)
[2018-10-14] MEDS ORDERED: Atorvastatin Calcium 40 MG TAB PO SCH (21:00)
--- NOTE | 2018-10-15 05:46 | PDOC.FM ---
- Subjective Subjective: VSS. No acute events overnight. Patient reports sleeping well. Denies chest pain , SOB, swelling in legs. Eating and drinking PO. He wants to know if he can shower and is going to order some coffee this AM. No other questions or concerns at this time. Discussed w/ patient increase in statin dose and to notify providers of side effects. - Objective MAR Reviewed: Yes Vital Signs & Weight: Vital Signs (12 hours) Temp Pulse Resp BP Pulse Ox 10/15/18 04:00 98.9 F 73 17 118/70 98 10/14/18 19:36 98.3 F 64 16 135/71 99 Weight Weight 70.171 kg I&O: 10/13/18 10/14/18 10/15/18 06:59 06:59 06:59 Intake Total 590 1170 Output Total 500 Balance 590 670 Result Diagrams: 10/15/18 05:53 10/15/18 05:53 Phys Exam - Physical Examination Constitutional: NAD Respiratory: clear to auscultation bilateral Cardiovascular: RRR, no significant murmur Musculoskeletal: no edema, pulses present Skin: no rash (Right femoral cath insertion site is dressed w/ gauze & tagaderm. Not disturbed. From outset appears clean, dry, intact, and without drainage.) Dx/Plan (1) Atypical chest pain Code(s): R07.89 - OTHER CHEST PAIN Status: Acute (2) HLD (hyperlipidemia) Code(s): E78.5 - HYPERLIPIDEMIA, UNSPECIFIED Status: Acute (3) HTN (hypertension) Code(s): I10 - ESSENTIAL (PRIMARY) HYPERTENSION Status: Acute (4) History of TIA (transient ischemic attack) and stroke Code(s): Z86.73 - PRSNL HX OF TIA (TIA), AND CEREB INFRC W/O RESID DEFICITS Status: Acute (5) GERD (gastroesophageal reflux disease) Code(s): K21.9 - GASTRO-ESOPHAGEAL REFLUX DISEASE WITHOUT ESOPHAGITIS Status: Acute (6) History of tobacco abuse Code(s): Z87.891 - PERSONAL HISTORY OF NICOTINE DEPENDENCE Status: Chronic (7) S/P right coronary artery (RCA) stent placement Code(s): Z95.5 - PRESENCE OF CORONARY ANGIOPLASTY IMPLANT AND GRAFT Status: Acute - Plan Plan: 58-y.o. male, former smoker held to telemetry for: 1. RCA stenosis s/p PCI w/ ROX placement x2, presented as atypical chest pain - Patient is stable. Patient already on ASA and Plavix. Continue dual- antiplatelet therapy. We may need to consider if this patient has some resistance to plavix with genetic testing since he required catheritization while already taking the standard antiplatelet regimen following his stroke. A higher plavix dose or more potent platelet P2Y12 receptor rich such as ticagrelor or prasugrel might be considered when patient follows up w/ PCP to reduce his risk of cardiac and cardiovascular events. - POD #1 - Cardiac cath 10/14/2018 - EKG on admission: LVH, NSR - Troponin negative x3. - Exercise Stress Test (10/07): 2.0-2.5 horizontal and down-sloping ST depression. - ECHO in 2017: EF of 50-55%, a normal left ventricle, and sclerotic aortic valve. - Consulted Dr. Cantor for Cardiology. Appreciate recs & intervention. - CBC, BMP WNL 2. HTN - Continue antihypertensives: lisinopril 20mg in morning, amlodipine 5 mg PO at night - Monitor BP q4h. 3. HLD - High intensity statin therapy. - Atorvastatin increased to 40mg from 10 mg daily PO - Discussed risks, benefits, and potential side effects of increased statin therapy w/ patient. Will notify PCP of change upon discharge. 4. History of stroke and TIA - Continue ASA 325mg daily, Plavix 75 mg PO daily - Patient has residual right leg weakness from him stroke in December 2017. 5. GERD - Continue nexium 40mg daily 6. Constipation - Continue miralax 17g daily PO Lou Conley MD PGY-1 Dispo: pending cardiology recs for discharge. Addendum - Attending - Attending Attestation Date/Time: 10/15/18 6492 I personally evaluated the patient and discussed the management with the team. I agree with the History, Examination, Assessment and Plan documented above with any addition or exceptions noted below. Likely d/c today. Discuss bb and med regimen with cards. Will need follow up for leukopenia and CAD as an outpatient.
[2018-10-15 06:00] LABS: #Eosinphils 0.1 thou/uL (0.0-0.7); #Lymphocytes 1.2 thou/uL (1.20-3.40); #Monocytes 0.4 thou/uL (0.11-0.59); #Neutrophils 2.5 thou/uL (1.40-6.50); %Lymphocytes 29.1 % (21.0-51.0); %Monocytes 10.5 % (0.0-10.0); %Neutrophils 58.4 % (42.0-75.0); Hemoglobin 12.8 g/dL (14.0-18.0); Mean Corpuscular HGB CONC 33.5 g/dL (32.0-36.0); Mean Corpuscular Volume 86.6 fL (78.0-98.0); Mean Platelet Volume 7.8 fL (7.4-10.4); Platelet Count 229 thou/uL (130-400); RBC Distribution Width 12.7 % (11.5-14.5); White Blood Cell (WBC) Count 4.2 thou/uL (4.8-10.8)
[2018-10-15 06:22] LABS: ALT (SGPT) 20 U/L (8-55); AST (SGOT) 16 U/L (5-34); Albumin 3.8 g/dL (3.5-5.0); Alkaline Phosphatase 78 U/L (40-150); Anion Gap 10 mmol/L (10-20); BUN (Urea Nitrogen) 11 mg/dL (8.4-25.7); Bilirubin, Total 1.1 mg/dL (0.2-1.2); Calc. Creatinine Clearance 106 mL/min (70-130); Calcium 9.4 mg/dL (7.8-10.44); Carbon Dioxide 26 mmol/L (22-29); Chloride 103 mmol/L (98-107); Estimated GFR-MDRD Greater than 90; Globulin 2.6 g/dL (2.4-3.5); Glucose 112 mg/dL (70-105); Potassium 3.8 mmol/L (3.5-5.1); Protein, Total 6.4 g/dL (6.0-8.3); Sodium 135 mmol/L (136-145)
[2018-10-15] MEDS: Aspirin 325 mg Enteric Coated Tablet PO SCH (08:25)
[2018-10-15] MEDS: Clopidogrel Bisulfate 75 MG TAB PO SCH (08:25)
[2018-10-15] MEDS: Lisinopril 20 MG TAB PO SCH (08:25)
[2018-10-15] MEDS: Nicotine 21 MG PATCH TD SCH (08:26)
[2018-10-15] MEDS ORDERED: Aspirin 325 mg Enteric Coated Tablet PO SCH (09:00)
[2018-10-15 12:10] VITALS: TEMP 98.5
[2018-10-15 12:14] VITALS: BP 112/66
--- NOTE | 2018-10-16 08:12 | EKG ---
Test Reason : POST STENTS X2 - RCA Blood Pressure : / mmHG Vent. Rate : 062 BPM Atrial Rate : 062 BPM P-R Int : 148 ms QRS Dur : 098 ms QT Int : 410 ms P-R-T Axes : 070 080 069 degrees QTc Int : 416 ms Normal sinus rhythm Moderate voltage criteria for LVH, may be normal variant Early repolarization Borderline ECG When compared with ECG of 13-OCT-2018 10:19, (Unconfirmed) No significant change was found Confirmed by DR. Lexi WOODWARD ([id number]) on 10/16/2018 8:11:49 AM Referred By: VENANCIO Confirmed By:DR. Lexi WOODWARD
--- NOTE | 2018-10-16 12:30 | DIS ---
DATE OF ADMISSION: 10/13/2018 DATE OF DISCHARGE: 10/15/2018 ADMITTING ATTENDING: Dr. Daly DISCHARGE ATTENDING: Dr. Vazquez Singh RESIDENT: Lou Conley MD CONSULTS: Cardiology. PROCEDURES: Cardiac catheterization/percutaneous coronary intervention on 10/14/2018. PRIMARY DIAGNOSIS: 1. Right coronary artery stenosis presenting as atypical chest pain. SECONDARY DIAGNOSES: 1. Hypertension. 2. Hyperlipidemia. 3. History of stroke and transient ischemic attack. 4. Gastroesophageal reflux disease. 5. Constipation. DISCHARGE MEDICATIONS: 1. Atorvastatin 40 mg p.o. daily. 2. Aspirin 81 mg p.o. daily. 3. Clopidogrel 75 mg p.o. daily. 4. Carvedilol 3.125 mg b.i.d. 5. Lisinopril 20 mg daily. 6. Nitroglycerin 0.4 mg tablet q.5 minutes p.r.n. 7. Nexium 20 mg take 2 tablets daily. 8. Polyethylene glycol 17 g pack p.o. daily. Discontinued medications: 1. Aspirin 325 mg daily. 2. Amlodipine 5 mg p.o. at night. 3. Atorvastatin 10 mg p.o. daily. HISTORY OF PRESENT ILLNESS AND HOSPITAL COURSE: This 58-year-old male with past medical history of hypertension, hyperlipidemia , TIA in 2012, and stroke in 2018, presented to the emergency department in the evening of 10/13 complaining of atypical chest pain. He described his chest pain as pressure that would come and go. He did not associate the pain with any type of exertion or movement. The patient also reported some left arm numbness and tingling. When he arrived to the emergency room, he was given nitroglycerin paste; and his pain improved. His EKG performed in the emergency room showed left ventricular hypertrophy and normal sinus rhythm. Troponins were negative x3. His chest x-ray also showed no acute findings. The patient had a stress test on 10/07/2018, which showed 2.0 to 2.[address] segment. As a result, Cardiology was consulted; and they proceeded with PCI. During the procedure, cardiology found severe right coronary artery stenosis, which required 2 drug-eluting stents. The patient tolerated the procedure well and had no symptoms or complications the following day. Cardiology signed off with medication recommendations. The patient was discharged home. DISPOSITION: Stable. DISCHARGE INSTRUCTIONS: 1. Location: Home. 2. Diet: Heart-healthy diet. 3. Activity: As tolerated. The patient may return to work on 10/22/2018. 4. Followup: Cardiac outpatient rehab on 10/22/2018. Follow up with PCP, Dr. Bloom within 1 week. Lou Conley MD PGY-1 Job ID: [id number] MTDD
--- NOTE | 2018-10-19 08:43 | EKG ---
Test Reason : Blood Pressure : / mmHG Vent. Rate : 060 BPM Atrial Rate : 060 BPM P-R Int : 142 ms QRS Dur : 096 ms QT Int : 408 ms P-R-T Axes : 068 082 062 degrees QTc Int : 408 ms Normal sinus rhythm Moderate voltage criteria for LVH, may be normal variant Borderline ECG When compared with ECG of 14-OCT-2018 11:05, (Unconfirmed) No significant change was found Confirmed by DR. Lexi WOODWARD ([id number]) on 10/19/2018 8:42:38 AM Referred By: VENANCIO Confirmed By:DR. Lexi WOODWARD
== END 2018-10-15 14:28 | disposition home or self-care (01) ==
LOC: ERS 10:09 → 2SW 12:22
PROVIDERS: ADMIT Family Medicine; ATTEND Family Medicine
PROC: 4A023N7 Measurement of Cardiac Sampling and Pressure, Left Heart, Percutaneous Approach (ICD-10-PCS; principal; 2018-10-14)
PROC: B2111ZZ Fluoroscopy of Multiple Coronary Arteries using Low Osmolar Contrast (ICD-10-PCS; 2018-10-14)
PROC: 027035Z Dilation of Coronary Artery, One Artery with Two Drug-eluting Intraluminal Devices, Percutaneous Approach (ICD-10-PCS; 2018-10-14)
DX: I25.10 Atherosclerotic heart disease of native coronary artery without angina pectoris (principal); E78.5 Hyperlipidemia, unspecified; I10 Essential (primary) hypertension; I69.341 Monoplegia of lower limb following cerebral infarction affecting right dominant side; K21.9 Gastro-esophageal reflux disease without esophagitis; K59.00 Constipation, unspecified; E78.00 Pure hypercholesterolemia, unspecified; Z87.891 Personal history of nicotine dependence; Z79.02 Long term (current) use of antithrombotics/antiplatelets; Z79.82 Long term (current) use of aspirin; Z79.899 Other long term (current) drug therapy
CPT/HCPCS: 36415; 71046; 80053; 82550; 84484; 85025; 92928; 93005; 93010; 93458; 93798; 94760; 96360; 96361; 99152; 99153; C1760; C1769; C1874; C1887; C9600; G0378; J1644; J2001; J2250; Q9967

== ENCOUNTER 2018-11-04 09:22 | Emergency (ER) | payer BC ==
[2018-11-04 09:50] LABS: #Basophils 0.1 thou/uL (0.0-0.2); #Eosinphils 0.2 thou/uL (0.0-0.7); #Lymphocytes 1.8 thou/uL (1.20-3.40); #Monocytes 0.5 thou/uL (0.11-0.59); #Neutrophils 2.1 thou/uL (1.40-6.50); %Basophils 2.6 % (0.0-1.0); %Eosinophils 3.8 % (0.0-10.0); %Lymphocytes 38.2 % (21.0-51.0); %Monocytes 10.1 % (0.0-10.0); %Neutrophils 45.3 % (42.0-75.0); Hemoglobin 13.1 g/dL (14.0-18.0); Mean Corpuscular HGB CONC 33.3 g/dL (32.0-36.0); Mean Corpuscular Hemoglobin 29.1 pg (27.0-31.0); Mean Corpuscular Volume 87.2 fL (78.0-98.0); Mean Platelet Volume 8.5 fL (7.4-10.4); Platelet Count 259 thou/uL (130-400); RBC Distribution Width 13.1 % (11.5-14.5); White Blood Cell (WBC) Count 4.6 thou/uL (4.8-10.8)
[2018-11-04 10:14] LABS: ALT (SGPT) 45 U/L (8-55); AST (SGOT) 39 U/L (5-34); Albumin 4.4 g/dL (3.5-5.0); Alkaline Phosphatase 91 U/L (40-150); Anion Gap 9 mmol/L (10-20); BUN (Urea Nitrogen) 17 mg/dL (8.4-25.7); Bilirubin, Total 0.6 mg/dL (0.2-1.2); CK (CPK) 188 U/L (30-200); Calc. Creatinine Clearance 0 mL/min (70-130); Calcium 9.9 mg/dL (7.8-10.44); Carbon Dioxide 27 mmol/L (22-29); Chloride 106 mmol/L (98-107); Estimated GFR-MDRD Greater than 90; Glucose 89 mg/dL (70-105); Lipase 19 U/L (8-78); Potassium 4.1 mmol/L (3.5-5.1); Protein, Total 7.4 g/dL (6.0-8.3); Sodium 138 mmol/L (136-145)
[2018-11-04] MEDS ORDERED: Nitroglycerin 2% Ointment 1 INCH/1 GM Packet ONE (10:19)
--- NOTE | 2018-11-04 10:28 | RAD ---
AP CHEST: HISTORY: Chest pain. COMPARISON: 12/29/2017 FINDINGS: The lungs appear clear. No infiltrate or vascular congestion. A calcified granuloma in the peripher al left lung and calcified left hilar lymph nodes are again noted. Heart size is normal. IMPRESSION: No acute finding. POS: [facility]
== END 2018-11-04 11:55 | disposition home or self-care (01) ==
LOC: ERS 09:22
DX: R07.89 Other chest pain (principal); I10 Essential (primary) hypertension; E78.5 Hyperlipidemia, unspecified; E78.00 Pure hypercholesterolemia, unspecified; Z86.73 Personal history of transient ischemic attack (TIA), and cerebral infarction without residual deficits; Z87.891 Personal history of nicotine dependence; Z79.899 Other long term (current) drug therapy
CPT/HCPCS: 71045; 80053; 82550; 83690; 84484; 85025; 93005